=== PATIENT | male | born 1965 | race Caucasian/White ===

== ENCOUNTER 2022-01-09 23:14 | Observation (INO) | payer MEDICARE, OTHER ==
--- NOTE | 2022-01-09 23:23 | ERPHSYRPT ---
- History of Present Illness Time Seen by Provider: 01/09/22 23:23 Source: patient Exam Limitations: no limitations Physician History: Is a 56-year-old cachectic appearing white male patient has a history of hypertension and is a poor historian. Patient lost his lower dentures but has his upper dentures in place. 3 days ago he ate a pork chop and in the last 3 days he has been unable to swallow because likely he has food bolus. He has had a food bolus stuck in his esophagus in the past and it required upper endoscopy. Patient does consume alcohol daily but has not been consuming liquids or oral intake. Patient continues to be a daily smoker of cigarettes. He denies chest pain and he denies shortness of breath. Patient has no abdominal pain. Timing/Duration: gradual onset Severity: moderate ENT Location: throat Prearrival Treatment: no prearrival treatment Associated Symptoms: difficulty swallowing (Breathing well but difficult to handle his secretions.) Allergies/Adverse Reactions: No Known Drug Allergies Allergy (Verified 01/09/22 23:41) Travel Risk - International Travel Have you traveled outside of the country in past 3 weeks: No - Coronavirus Screening Are you exhibiting any of the following symptoms?: No Close contact with a COVID-19 positive Pt in past 14-21 Days: No - Review of Systems Constitutional: No Symptoms Eyes: No Symptoms Ears, Nose, & Throat: Other (Difficulty swallowing) Respiratory: No Symptoms Cardiac: No Symptoms Abdominal/Gastrointestinal: No Symptoms Genitourinary Symptoms: No Symptoms Musculoskeletal: No Symptoms Skin: No Symptoms Neurological: No Symptoms Psychological: No Symptoms Endocrine: No Symptoms Hematologic/Lymphatic: No Symptoms Immunological/Allergic: No Symptoms All Other Systems: Reviewed and Negative - Past Medical History Pertinent Past Medical History: Yes - Past Surgical History Past Surgical History: Yes - Nursing Vital Signs Nursing Vital Signs: Initial Vital Signs Temperature 97.8 F 01/09/22 23:42 Pulse Rate 129 H 01/09/22 23:42 Respiratory Rate 18 01/09/22 23:42 Blood Pressure 162/111 01/09/22 23:42 O2 Sat by Pulse Oximetry 97 01/09/22 23:42 Pain Scale Pain Intensity 4 - Physical Exam General Appearance: mild distress, alert, anxiety Eye Exam: bilateral eye: normal inspection, PERRL, EOMI Ear Exam: bilateral ear: auricle normal Nasal Exam: normal inspection Throat Exam: pharynx normal, excessive drooling (Difficulty handling his secretions), moist mucus membranes Neck Exam: normal inspection, non-tender, supple, full range of motion Cardiovascular/Respiratory Exam: chest non-tender, no respiratory distress Abdominal Exam: non-tender Neurologic Exam: alert, oriented x 3, cooperative, multi spindle operator II-XII nml as tested, normal mood/affect, nml cerebellar function, nml station & gait, sensation nml Skin Exam: normal color, warm, dry SpO2 Interpretation: normal O2 Delivery: Room Air - Course Nursing assessment & vital signs reviewed: Yes Ordered Tests: Active Orders 24 hr Category Date Time Status IV Insertion STAT Care 01/10/22 00:08 Active CBC W DIFF Stat Lab 01/10/22 00:08 Ordered CMP Stat Lab 01/10/22 00:08 Ordered Medication Summary Generic Name Dose Route Start Last Admin Trade Name Freq PRN Reason Stop Dose Admin Sodium Chloride 1,000 mls @ 999 mls/hr 01/10/22 00:08 Sodium Chloride 0.9% 1000 Ml IV 01/10/22 01:08 .Q1H1M STA Discontinued Medications Generic Name Dose Route Start Last Admin Trade Name Freq PRN Reason Stop Dose Admin Glucagon 1 mg 01/09/22 23:49 Glucagon 1 Mg/Vial Vial IM 01/09/22 23:50 STAT ONE Lorazepam 0.5 mg 01/10/22 00:10 Lorazepam 2 Mg/1 Ml 2 Mg Vial IV 01/10/22 00:11 STAT ONE Ondansetron HCl 4 mg 01/10/22 00:08 Ondansetron Hcl 4 Mg/2 Ml Vial IV 01/10/22 00:09 STAT ONE Pantoprazole Sodium 40 mg 01/10/22 00:08 Pantoprazole 40 Mg Vial IV 01/10/22 00:09 STAT ONE - Progress Progress: unchanged Progress Note: 01/10/22 00:12 Medical decision making: This patient likely has a retained esophageal food bolus. Clinically he is having difficulty handling his secretions. He is breathing well. He is in need of upper endoscopy and retrieval/removal of food bolus. I spoke with Dr. Guzman, general surgeon on-call for the hospital. Patient will be placed in observation. He will call the surgeon who will be performing procedures here in the hospital tomorrow morning and make them aware of this patient's presents in the hospital. We will place an IV in this patient and rehydrate him since he has not eaten anything or drank anything in 3 days. He said he typically drinks alcohol daily and we will make sure he has Ativan available for any anxiety and agitation. We will also check his labs. We will place him in observation. I spoke with nursing child care supervisor Orquidea who is aware that this patient will require upper endoscopy in the morning. She will make the operating room aware that this will be an add-on case. Discussed with Dr.: Isa Hernandes Counseled pt/family regarding: lab results, diagnosis - Departure Departure Disposition: Home Clinical Impression: Esophageal foreign body Condition: Stable Critical Care Time: No
[2022-01-09] MEDS ORDERED: GlucaGen 1 MG IM ONE (23:49)
[2022-01-10] MEDS ORDERED: PROTONIX 40 MG IV IV ONE ×2 (00:08→00:20)
[2022-01-10] MEDS ORDERED: Zofran 4 MG/2 ML VIAL IV ONE (00:08)
[2022-01-10] MEDS ORDERED: Sodium Chloride 0.9% 1000 ML 1,000 ML IV STA (00:08)
[2022-01-10] MEDS ORDERED: Ativan 2 MG/1 ML VIAL IV ONE (00:10)
[2022-01-10] MEDS ORDERED: Zofran 4 MG/2 ML VIAL ONE (00:19)
[2022-01-10] MEDS ORDERED: Sodium Chloride 0.9% 1000 ML 1,000 ML ONE (00:20)
[2022-01-10] MEDS ORDERED: GlucaGen 1 MG ONE (00:20)
[2022-01-10] MEDS ORDERED: Ativan 2 MG/1 ML VIAL ONE (00:20)
[2022-01-10 00:23] LABS: Absolute Neutrophil Ct (ANC) 8.51 x10^3/uL (1.4-6.9); Basophil (Absolute #) 0.06 x10^3/uL (0-0.4); Eosinophil % 0.3 % (0.00-5.0); Eosinophil (Absolute #) 0.03 x10^3/uL (0-0.5); Lymphocyte (Absolute #) 1.42 x10^3/uL (1.0-4.6); Lymphocytes % 12.6 % (24.0-44.0); Mean Cell Volume 100.8 fL (78-100); Mean Corpuscular Hemoglobin 32.9 pg (26-32); Mean Corpuscular Hgb Concent. 32.7 g/dL (32-36); Mean Platelet Volume 9.8 fL (7.5-11.0); Monocytes % 10.7 % (0.0-12.0); Neutrophil % 75.5 % (36.0-66.0); Platelet Count 289 x10^3/uL (150-450); Red Blood Count 4.86 x10^6/uL (4.1-5.6); Red Cell Distribution Width 12.4 % (11.5-14.0); White Blood Count 11.3 x10^3/uL (4.0-10.5)
[2022-01-10 00:36] LABS: ALBUMIN 4.5 g/dL (3.5-5.0); ALKALINE PHOSPHATASE 173 U/L (38-126); ANION GAP 14.7 MEQ/L (5-15); BLOOD UREA NITROGEN 9 mg/dL (9-20); CHLORIDE 101 mmol/L (98-107); Calcium 9.6 mg/dL (8.4-10.2); Carbon Dioxide 25 mmol/L (22-30); Creatinine 1 0.85 mg/dL (0.66-1.25); EST GLOMERULAR FILTRATION RATE > 60.0 ML/MIN; Glucose 115 mg/dL (74-106); Potassium 3.6 mmol/L (3.5-5.1); SGOT/AST 47 U/L (17-59); SGPT/ALT 28 U/L (0-50); SODIUM 138 mmol/L (137-145); Total Protein 8.4 g/dL (6.3-8.2)
[2022-01-10 01:28] LABS: INFLUENZA A NEGATIVE (NEGATIVE); INFLUENZA B NEGATIVE (NEGATIVE); RESPIRATORY SYNCTIAL VIRUS NEGATIVE (Negative); SARS-CoV-2 Xpert Express NEGATIVE (NEGATIVE)
[2022-01-10] MEDS ORDERED: Zofran 4 MG/2 ML VIAL IV PRN (02:01)
[2022-01-10] MEDS ORDERED: Sodium Chloride 0.9% 1000 ML 1,000 ML IV SCH (02:01)
[2022-01-10] MEDS ORDERED: PROTONIX 40 MG IV IV SCH ×2 (02:01→22:00)
[2022-01-10] MEDS ORDERED: Xylocaine-Mpf 2% 5 Ml Vial ONE (07:14)
[2022-01-10] MEDS ORDERED: DIPRIVAN 200 MG/20 ML IV ONE (07:14)
[2022-01-10] MEDS ORDERED: Versed 2 MG/2 ML Injection ONE (07:16)
[2022-01-10] MEDS ORDERED: Quelicin Fliptop 200 MG/10 ML ONE (07:25)
[2022-01-10] MEDS ORDERED: SUBLIMAZE 100 MCG/2 ML ONE (07:25)
[2022-01-10 07:34] VITALS: BP 141/69; PULSE 68; O2SAT 94
--- NOTE | 2022-01-10 09:01 | PCM.SSS ---
History of Present Illness - Chief Complaint Chief Complaint: esophageal foreign body History of Present Illness: is a 56 year old male who arrived to the ER last evening c/o impacted piece of pork chop in his throat, he felt it had been stuck for several days, he has no complaints following egd. he has no chest pain, no sore throat, no fever, no cough or other concerns. he has had a previous episode of impacted food bolus in the past. - Review of Systems Constitutional: No Fever, No Chills Ears, Nose, & Throat: Other (food bolus) Respiratory: No Cough, No Short Of Breath Cardiac: No Chest Pain, No Edema, No Syncope Abdominal/Gastrointestinal: No Abdominal Pain, No Nausea, No Vomiting, No Diarrhea Medications & Allergies Home Medications: Home Medication List Lisinopril/Hydrochlorothiazide [Lisinopril-Hctz 10-12.5 mg Tab] 1 each PO DAILY 01/10/22 [History Confirmed 01/10/22] Omeprazole 40 mg PO DAILY #30 cap 01/10/22 [Rx] Allergies/Adverse Reactions: Allergies Allergy/AdvReac Type Severity Reaction Status Date / Time No Known Drug Allergies Allergy Verified 01/09/22 23:41 - Past Medical History Past Medical History: Yes Neurological History: No Pertinent History ENT History: No Pertinent History Cardiac History: Hypertension Respiratory History: No Pertinent History Endocrine Medical History: No Pertinent History Musculoskelatal History: No Pertinent History History: No Pertinent History Pyscho-Social History: No Pertinent History Male Reproductive Disorders: No Pertinent History Comment: daily drinker - Past Surgical History Past Surgical History: Yes Neuro Surgical History: No Pertinent History Cardiac History: No Pertinent History Respiratory Surgery: No Pertinent History GI Surgical History: No Pertinent History Genitourinary Surgical Hx: No Pertinent History Musculskeletal Surgical Hx: Orthopedic Surgery Male Surgical History: No Pertinent History Other Surgical History: L leg, L pinky, broke jaw in 5 places requiring surgery - Social History Smoking Status: Current every day smoker Exposure to second hand smoke: No Alcohol: Heavy, Daily Drug Use: none - Physical Exam Vital Signs: Vital Signs - 24 hr Temp Pulse Resp BP BP Pulse Ox 01/10/22 07:33 97.7 F 68 16 141/69 94 L 01/10/22 03:33 97.1 F 92 H 18 163/71 98 01/10/22 02:34 97.1 F 92 H 18 163/71 98 01/10/22 02:33 98 01/10/22 02:04 97.1 F 92 H 18 163/71 98 01/10/22 01:02 100 H 19 167/90 95 01/10/22 00:58 103 H 21 170/98 97 01/09/22 23:42 97.8 F 129 H 18 162/111 97 General Appearance: no apparent distress, alert Neurologic Exam: alert, oriented x 3 Respiratory Exam: normal breath sounds, lungs clear, No respiratory distress Cardiovascular Exam: regular rate/rhythm, normal heart sounds, normal peripheral pulses Gastrointestinal/Abdomen Exam: soft, normal bowel sounds, No tenderness, No mass Skin Exam: normal color, warm, dry, No rash Results - Labs Lab/Micro Results: Lab Results-Last 24 Hours 01/10/22 01/10/22 01/10/22 Range/Units 00:17 00:17 00:49 WBC 11.3 H (4.0-10.5) x10^3/uL RBC 4.86 (4.1-5.6) x10^6/uL Hgb 16.0 (12.5-18.0) g/dL Hct 49.0 (42-50) % MCV 100.8 H (78-100) fL MCH 32.9 H (26-32) pg MCHC 32.7 (32-36) g/dL RDW 12.4 (11.5-14.0) % Plt Count 289 (150-450) x10^3/uL MPV 9.8 (7.5-11.0) fL Gran % 75.5 H (36.0-66.0) % Immature Gran % (Auto) 0.4 (0.00-0.4) % Nucleat RBC Rel Count 0.0 (0.00-0.1) % Eos # (Auto) 0.03 (0-0.5) x10^3/uL Immature Gran # (Auto) 0.04 H (0.00-0.03) x10^3u/L Absolute Lymphs (auto) 1.42 (1.0-4.6) x10^3/uL Absolute Monos (auto) 1.20 (0.0-1.3) x10^3/uL Absolute Nucleated RBC 0.00 (0.00-0.01) x10^3u/L Lymphocytes % 12.6 L (24.0-44.0) % Monocytes % 10.7 (0.0-12.0) % Eosinophils % 0.3 (0.00-5.0) % Basophils % 0.5 (0.0-0.4) % Absolute Granulocytes 8.51 H (1.4-6.9) x10^3/uL Basophils # 0.06 (0-0.4) x10^3/uL Sodium 138 (137-145) mmol/L Potassium 3.6 (3.5-5.1) mmol/L Chloride 101 (98-107) mmol/L Carbon Dioxide 25 (22-30) mmol/L Anion Gap 14.7 (5-15) MEQ/L BUN 9 (9-20) mg/dL Creatinine 0.85 (0.66-1.25) mg/dL Estimated GFR > 60.0 ML/MIN Glucose 115 H (74-106) mg/dL Calcium 9.6 (8.4-10.2) mg/dL Total Bilirubin 0.80 (0.2-1.3) mg/dL AST 47 (17-59) U/L ALT 28 (0-50) U/L Alkaline Phosphatase 173 H (38-126) U/L Serum Total Protein 8.4 H (6.3-8.2) g/dL Albumin 4.5 (3.5-5.0) g/dL Influenza Type A Ag NEGATIVE (NEGATIVE) Influenza Type B Ag NEGATIVE (NEGATIVE) RSV (PCR) NEGATIVE (Negative) SARS-CoV-2 (PCR) NEGATIVE (NEGATIVE) Assessment/Plan (1) Food impaction of esophagus Current Visit: Yes Status: Acute Assessment & Plan: no food bolus seen on EGD, had stricture dilated. ok to go home per surgery. Code(s): T18.128A - FOOD IN ESOPHAGUS CAUSING OTHER INJURY, INITIAL ENCOUNTER (2) Esophageal stricture Current Visit: Yes Status: Acute Code(s): K22.2 - ESOPHAGEAL OBSTRUCTION Hospital Summary - Vitals & Intake/Output Vital Signs: Vital Signs Temperature 97.7 F 01/10/22 07:33 Pulse Rate 68 01/10/22 07:33 Respiratory Rate 16 01/10/22 07:33 Blood Pressure 141/69 01/10/22 07:33 O2 Sat by Pulse Oximetry 94 L 01/10/22 07:33 Intake & Output: Intake & Output 01/07/22 01/08/22 01/09/22 01/10/22 11:59 11:59 11:59 11:59 Weight 48.9 kg - Lab Result Diagrams: 01/10/22 00:17 01/10/22 00:17 Lab Results-Last 24 Hrs: Lab Results-Last 24 Hours 01/10/22 01/10/22 01/10/22 Range/Units 00:17 00:17 00:49 WBC 11.3 H (4.0-10.5) x10^3/uL RBC 4.86 (4.1-5.6) x10^6/uL Hgb 16.0 (12.5-18.0) g/dL Hct 49.0 (42-50) % MCV 100.8 H (78-100) fL MCH 32.9 H (26-32) pg MCHC 32.7 (32-36) g/dL RDW 12.4 (11.5-14.0) % Plt Count 289 (150-450) x10^3/uL MPV 9.8 (7.5-11.0) fL Gran % 75.5 H (36.0-66.0) % Immature Gran % (Auto) 0.4 (0.00-0.4) % Nucleat RBC Rel Count 0.0 (0.00-0.1) % Eos # (Auto) 0.03 (0-0.5) x10^3/uL Immature Gran # (Auto) 0.04 H (0.00-0.03) x10^3u/L Absolute Lymphs (auto) 1.42 (1.0-4.6) x10^3/uL Absolute Monos (auto) 1.20 (0.0-1.3) x10^3/uL Absolute Nucleated RBC 0.00 (0.00-0.01) x10^3u/L Lymphocytes % 12.6 L (24.0-44.0) % Monocytes % 10.7 (0.0-12.0) % Eosinophils % 0.3 (0.00-5.0) % Basophils % 0.5 (0.0-0.4) % Absolute Granulocytes 8.51 H (1.4-6.9) x10^3/uL Basophils # 0.06 (0-0.4) x10^3/uL Sodium 138 (137-145) mmol/L Potassium 3.6 (3.5-5.1) mmol/L Chloride 101 (98-107) mmol/L Carbon Dioxide 25 (22-30) mmol/L Anion Gap 14.7 (5-15) MEQ/L BUN 9 (9-20) mg/dL Creatinine 0.85 (0.66-1.25) mg/dL Estimated GFR > 60.0 ML/MIN Glucose 115 H (74-106) mg/dL Calcium 9.6 (8.4-10.2) mg/dL Total Bilirubin 0.80 (0.2-1.3) mg/dL AST 47 (17-59) U/L ALT 28 (0-50) U/L Alkaline Phosphatase 173 H (38-126) U/L Serum Total Protein 8.4 H (6.3-8.2) g/dL Albumin 4.5 (3.5-5.0) g/dL Influenza Type A Ag NEGATIVE (NEGATIVE) Influenza Type B Ag NEGATIVE (NEGATIVE) RSV (PCR) NEGATIVE (Negative) SARS-CoV-2 (PCR) NEGATIVE (NEGATIVE) - Procedures and Test Procedures and Tests throughout Hospitalization: Therapy Orders & Screens 01/10/22 02:33 Smoking Cessation Education ONCE Comment: Diagnosis: esophageal foreign body Smoking Status: Current every day smoker Do you dip or chew tobacco: No - Discharge Disposition: Home, Self-Care Condition: Stable Prescriptions: New Omeprazole 40 mg PO DAILY #30 cap Continue Lisinopril/Hydrochlorothiazide [Lisinopril-Hctz 10-12.5 mg Tab] 1 each PO DAILY Instructions: Removal of Foreign Body, Swallowed, Adult Follow up with: DOCTOR,NO FAMILY [Primary Care Provider] -
[2022-01-10] MEDS ORDERED: NON-FORMULARY ITEM (Lisinopril/Hydrochlorothiazide [Lisinopril-Hctz 10-12.5 Mg Tab] 1 EACH PO SCH (10:00)
[2022-01-10] MEDS ORDERED: hydroDIURIL 25 MG PO SCH (10:00)
[2022-01-10] MEDS ORDERED: Zestril 10 MG PO SCH (10:00)
--- NOTE | 2022-01-10 11:25 | HP ---
CHIEF COMPLAINT: Food bolus in the esophagus. HISTORY OF PRESENT ILLNESS: The patient is a 56-year-old who came to the emergency room complaining of a food bolus stuck in his esophagus. He was scheduled for EGD with removal of the foreign body. PAST MEDICAL HISTORY: Past medical history seems to be overall unremarkable. The patient denies any cardiovascular or neurological symptoms. PHYSICAL EXAMINATION: On exam he is alert and oriented. HEENT: Pupils are equal and normoreactive. NECK: Supple. COR: Regular rhythm. ABDOMEN: Soft, nontender. EXTREMITIES: Within normal limits and no pedal edema. IMPRESSION: Food bolus in the esophagus. PLAN: Proceed with EGD with removal of foreign body and possible dilatation. The patient understands and consents to the procedure.
--- NOTE | 2022-01-10 11:52 | OP ---
SURGERY DATE/TIME: 01/10/2022 0725 PREOPERATIVE DIAGNOSIS: Food bolus in the esophagus. POSTOPERATIVE DIAGNOSIS: Esophageal stricture. No food bolus impacted in the esophagus was noted at this time. PROCEDURE: EGD. SURGEON: Yaniv Guzman M.D. ANESTHESIA: General. DESCRIPTION OF PROCEDURE AND FINDINGS: The patient was taken to the endoscopy lab and was given general anesthesia. The scope was introduced and advanced in the upper esophagus down to the gastroesophageal junction. At the level of the mid esophagus, there were some inflammatory changes probably due to the persistence of the food bolus in the area. An area of mild stenosis was noted probably at 20 cm in the mid esophagus area but there was no food bolus at this time. The food bolus has probably passed on its own. The scope was then advanced into the stomach and negotiated through the pyloric channel to the first and second portion of the duodenum. There was no evidence of the food bolus either in the stomach or duodenum. At this point a biopsy was taken from the antrum for Helicobacter pylori and to rule out gastritis. Then using a balloon dilator the 20 mm balloon was used to dilate the distal and mid esophagus where the area of stricture was noted. The patient tolerated this procedure well and was taken back to the recovery area in overall stable condition. DIAGNOSIS: Mid esophageal stricture. There was no evidence of malignancy identified. The area was dilated about to 20 mm or 60 [place]. The patient tolerated this procedure well and was taken back to the recovery area in overall stable condition.
== END 2022-01-10 14:00 | disposition home or self-care (01) ==
LOC: ED 23:14 → MED SURG 01-10 01:52
PROVIDERS: ADMIT Family Medicine; ATTEND Family Medicine
DX: T18.128A Food in esophagus causing other injury, initial encounter (principal); K22.2 Esophageal obstruction; I10 Essential (primary) hypertension; Z72.0 Tobacco use; Z79.899 Other long term (current) drug therapy; Z20.828 Contact with and (suspected) exposure to other viral communicable diseases
CPT/HCPCS: 00731; 0241U; 36000; 36415; 43249; 80053; 85025; 96360; 96372; 96374; 96375; 97161; 99140; 99285; C1726; G0378; J0330; J1610; J2060; J2250; J2405; J2704; J3010; A9270-GY